=== PATIENT | female | born 1965 | race Caucasian/White ===

== ENCOUNTER 2023-01-20 16:56 | Emergency (ER) | payer OTHER ==
[~2023-01-20] VITALS: Ht 149.9 cm; Wt 59.0 kg
[2023-01-20 17:06] VITALS: BP 141/77
[2023-01-20] MEDS ORDERED: CEPH500C2 PO ×2 (18:38→18:42)
--- NOTE | 2023-01-20 18:43 | NUR ---
Patient discharged to home in stable condition. Written and verbal after care instructions given. Patient verbalizes understanding of instruction.
== END 2023-01-20 18:45 | disposition home or self-care (01) ==
LOC: ER 17:15
DX: L03.012 Cellulitis of left finger (principal); J45.909 Unspecified asthma, uncomplicated; F32.A Depression, unspecified; F41.9 Anxiety disorder, unspecified; F17.299 Nicotine dependence, other tobacco product, with unspecified nicotine-induced disorders; Z60.2 Problems related to living alone; Z79.899 Other long term (current) drug therapy
CPT/HCPCS: 73140-TC

== ENCOUNTER 2023-04-03 01:35 | Emergency (ER) | payer OTHER ==
[~2023-04-03] VITALS: Ht 149.9 cm; Wt 57.6 kg
[~2023-04-03 01:35] MED LIST: CEPH500C2 PO
--- NOTE | 2023-04-03 01:54 | NUR ---
BIBS C/O R SHOULDER PAIN X 2 DAYS DENIES TRAUMA
--- NOTE | 2023-04-03 02:11 | NUR ---
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
[2023-04-03] MEDS ORDERED: ACETAMINOPHEN ES 500 MG TABLET ONE (02:21)
[2023-04-03] MEDS ORDERED: IBUPROFEN 600 MG TABLET ONE (02:22)
[2023-04-03] MEDS ORDERED: IBUPROFEN 600 MG TABLET PO ONE (02:30)
[2023-04-03] MEDS ORDERED: ACETAMINOPHEN ES 500 MG TABLET PO ONE (02:30)
[2023-04-03] MEDS ORDERED: IBUP-1953 PO (05:05)
--- NOTE | 2023-04-03 05:16 | NUR ---
Patient discharged to home in stable condition. Written and verbal after care instructions given. Patient verbalizes understanding of instruction.
[2023-04-03 05:17] VITALS: BP 125/74
== END 2023-04-03 05:17 | disposition home or self-care (01) ==
LOC: ER 01:42
DX: M25.511 Pain in right shoulder (principal); J45.909 Unspecified asthma, uncomplicated; F17.210 Nicotine dependence, cigarettes, uncomplicated; Z79.899 Other long term (current) drug therapy
CPT/HCPCS: 73030-TC